=== PATIENT | female | born 1980 | race Caucasian/White ===

== ENCOUNTER → 2024-12-06 | Day surgery (SDC) | payer BC ==
[2024-12-05 16:10] LABS: BASOPHILS % 0.4 % (0.0-1.0); EOSINOPHILS # (AUTO) 0.1 (0.0-0.4); EOSINOPHILS % 1.4 % (0.0-6.0); HEMATOCRIT 40.4 % (34.2-44.1); HEMOGLOBIN 13.1 g/dL (12.0-16.0); LYMPHOCYTES # (AUTO) 3.2 (1.0-3.2); LYMPHOCYTES % 31.4 % (18.0-39.1); MEAN CORPUSCULAR HEMOGLOBIN 32.3 pg (28-32); MEAN CORPUSCULAR HGB CONC 32.4 g/dL (31-35); MEAN CORPUSCULAR VOLUME 99.5 fL (81-99); MONOCYTES # (AUTO) 0.5 (0.2-0.8); MONOCYTES % 4.7 % (4.4-11.3); NEUTROPHILS # (AUTO) 6.3 (2.1-6.9); NEUTROPHILS % 61.8 % (38.7-80.0); PLATELET COUNT 383 x10e3/uL (140-360); RED BLOOD COUNT 4.06 x10e6/uL (3.6-5.1); RED CELL DISTRIBUTION WIDTH 11.9 % (11.7-14.4); WHITE BLOOD COUNT 10.21 x10e3/uL (4.8-10.8)
[~2024-12-06] MED LIST: ACETAMINOPHEN 1000 MG/100 ML 100 ML IV ONE; ACETAMINOPHEN-1 EAC3 PO; ADDERALL 20 MG20 MG PO; AMOX TR-K CLV1 EAC1 PO; DEXAMETHASONE SOD PHOS INJ 4 MG/ML SDV ONE; EPHEDRINE SULFATE INJ 50 MG/ML VIAL ONE; ESTRADIOL1 MG PR; FENTANYL CITRATE/PF 100MCG/2 ML INJ ONE; LDN PO; LIDOCAINE HCL 2% LOCAL INJ 5 ML SDV VIAL INJ ONE; MAGNESIUM PO; METHOCARBAMOL750 MG PO; METOPROLOL SUCC50 MG PO; MIDAZOLAM HCL 2 MG/2 ML VIAL ONE; NEURONTIN300 MG PO; ONDANSETRON HCL INJ 2MG/ML 2ML 2 MG/ML VIAL ONE; PRAMIPEXOLE D0.25 MG PO; PROGESTERONE100 MG PO; PROPOFOL IV EMULSION 10 MG/ML 20 ML VIAL ONE; SEVOFLURANE INHAL SOLN 250 ML PEN BTL ONE; SPIRONOLACTONE25 MG PO; VALACYCLOVIR500 MG PO
[2024-12-06] MEDS: LACTATED RINGER'S 1,000 ML ONE (06:51)
[2024-12-06] MEDS: CEFTRIAXONE 1 GM VIAL ONE (06:51)
[2024-12-06 08:41] VITALS: TEMP 98
[2024-12-06 09:45] VITALS: BP 140/90; PULSE 74; RESP 18; O2SAT 99
== END | disposition home or self-care (01) ==
LOC: OR 05:23
PROVIDERS: ATTEND Urology
DX: N20.1 Calculus of ureter (principal); N13.30 Unspecified hydronephrosis; N13.5 Crossing vessel and stricture of ureter without hydronephrosis; G89.29 Other chronic pain; F90.9 Attention-deficit hyperactivity disorder, unspecified type; Z01.810 Encounter for preprocedural cardiovascular examination; Z01.812 Encounter for preprocedural laboratory examination; Z79.899 Other long term (current) drug therapy
CPT/HCPCS: 36415; 52356; 74420; 85025; 93005; C1758 ×2; C2617; J0131; J0696; J1100; J2003; J2250; J2405; J2704; J3010; J7121

== ENCOUNTER → 2024-12-20 | Day surgery (SDC) | payer BC ==
[2024-12-18 14:51] LABS: CALCIUM 9.6 mg/dL (8.4-10.2); CREATININE, SERUM 0.89 mg/dL (0.57-1.11)
[~2024-12-20] MED LIST changes: -EPHEDRINE SULFATE INJ 50 MG/ML VIAL ONE; +KETOROLAC TROMETHAMINE 30 MG/ML VIAL ONE; -MIDAZOLAM HCL 2 MG/2 ML VIAL ONE; -SEVOFLURANE INHAL SOLN 250 ML PEN BTL ONE
[2024-12-20] MEDS: LACTATED RINGER'S 1,000 ML ONE (06:03)
[2024-12-20] MEDS: CEFTRIAXONE 1 GM VIAL ONE (06:03)
[2024-12-20 08:06] VITALS: TEMP 98.2
[2024-12-20 09:15] VITALS: BP 129/75; PULSE 70; RESP 14; O2SAT 98
== END | disposition home or self-care (01) ==
LOC: OR 05:32
PROVIDERS: ATTEND Urology
DX: N20.1 Calculus of ureter (principal); Z46.6 Encounter for fitting and adjustment of urinary device; N13.5 Crossing vessel and stricture of ureter without hydronephrosis; N20.0 Calculus of kidney; N28.1 Cyst of kidney, acquired; N13.30 Unspecified hydronephrosis; N39.0 Urinary tract infection, site not specified; R35.1 Nocturia; E66.01 Morbid (severe) obesity due to excess calories; D64.9 Anemia, unspecified; I49.3 Ventricular premature depolarization; I49.1 Atrial premature depolarization; F32.A Depression, unspecified; Q74.0 Other congenital malformations of upper limb(s), including shoulder girdle; Z91.014 Allergy to mammalian meats; Z01.812 Encounter for preprocedural laboratory examination; Z79.899 Other long term (current) drug therapy; Z68.32 Body mass index [BMI] 32.0-32.9, adult
CPT/HCPCS: 36415; 52332; 52344; 74420; 80048; C1758 ×2; C1769; C2617; J0131; J0696; J1100; J1885; J2003; J2405; J2704; J3010; J7121